=== PATIENT | female | born 1990 | race Caucasian/White ===

== ENCOUNTER 2017-04-23 16:38 | Emergency (ER) | payer OTHER ==
[2017-04-23] MEDS ORDERED: PENICILLIN G BENZATHINE 1.2 MILLION UNIT/2 ML DISP.SYRIN IM ONE (17:12)
[2017-04-23] MEDS ORDERED: DEXAMETHASONE SOD PHOS INJ 10 MG/1 ML VIAL IM ONE (17:12)
--- NOTE | 2017-04-23 17:17 | ER Document Report ---
ED ENT - General Chief Complaint: Sore Throat Stated Complaint: SORE THROAT Time Seen by Provider: 04/23/17 17:01 Mode of Arrival: Ambulatory Information source: Patient TRAVEL OUTSIDE OF THE [place] IN LAST 30 DAYS: No - HPI Patient complains to provider of: Throat problem Notes: The patient is here with complaints of sore throat and fever for the last few days. She denies cough or runny nose. She denies nausea, vomiting, diarrhea. No chest pain or shortness of breath. No abdominal pain. She states that it hurts when she swallows and cold water seems to make things better. She denies any difficulty breathing or swallowing other than pain when she swallows. She denies blurred or loss vision. She denies numbness, TingLING, weakness. She denies neck stiffness. She denies rash. She denies any other complaints at this time. - Related Data Allergies/Adverse Reactions: chocolate Allergy (Uncoded 04/23/17 16:40) throat swelling Past Medical History - Social History Smoking Status: Unknown if Ever Smoked Family History: Reviewed & Not Pertinent Neurological Medical History: Reports: Hx Migraine Renal/ Medical History: Reports: Hx Ovarian Cysts Past Surgical History: Reports: Hx Appendectomy, Hx Gynecologic Surgery - ovarian cyst removal - Immunizations Immunizations up to date: Yes Hx Diphtheria, Pertussis, Tetanus Vaccination: Yes Review of Systems - Review of Systems -: Yes All other systems reviewed and negative Physical Exam - Vital signs Vitals: Temp Pulse Resp BP Pulse Ox 99.4 F 109 H 16 112/69 97 04/23/17 16:39 04/23/17 16:39 04/23/17 16:39 04/23/17 16:39 04/23/17 16:39 - Notes Notes: GENERAL: alert, cooperative, nontoxic, no distress. HEAD: normocephalic, atraumatic EYES: conjunctiva pink without discharge, no external redness or swelling. EARS: no external swelling, no external redness, no mastoid redness, swelling, tenderness. Ear canals are clear without swelling or drainage. TMs pearly stuart , no redness, no bulging, normal landmarks, no perforation. NOSE: atraumatic, no external swelling. clear rhinorrhea noted. MOUTH/THROAT: mucous membranes moist and pink, posterior pharynx with erythema and bilateral tonsillar swelling with tonsils +2. Uvula is midline. No trismus or drooling. No stridor. Voice is normal. No peritonsillar abscess. NECK: soft, supple, full range of motion, no meningismus. Anterior cervical lymphadenopathy bilaterally. CHEST: no distress, lungs clear and equal throughout. No wheezing, rales, rhonchi. CARDIAC: regular rate and rhythm, no murmur, normal capillary refill, normal pulses. No peripheral edema noted. BACK: full range of motion, no CVA tenderness. EXTREMITIES: full range of motion of all extremities. No redness, no swelling. NEURO: alert and oriented A&O3, no focal deficits, full range of motion of all extremities. PYSCH: appropriate mood, affect. Patient is cooperative. SKIN: pink, warm, dry, no rash. Course - Re-evaluation Re-evalutation: 04/23/17 17:15 Patient is nontoxic appearing with stable vitals. The patient is here with complaints of sore throat and fever without cough, runny nose. Throat exam shows erythematous, swollen exudative tonsils with no sign of peritonsillar abscess or significant distress. She has anterior cervical lymphadenopathy. She is afebrile. This point the patient most likely has streptococcal pharyngitis. I offered strep testing versus treatment, the patient states she is fine to be treated. She will be given a dose of Decadron and Bicillin in the emergency department. Discharged home with instructions to take over-the- counter medications as needed for pain. Drink plenty fluids. Follow-up with her doctor if not better in 3-5 days, sooner for worsening pain, difficulty breathing or swallowing, or for any further concerns. The patient's emergency department workup and current diagnosis were explained to the patient and or family. Follow-up instructions were provided. Medications if prescribed were discussed. Instructions for when to return to the emergency department including specific worrisome symptoms were discussed with the patient and/or family. - Vital Signs Vital signs: Temp Pulse Resp BP Pulse Ox 99.4 F 109 H 16 112/69 97 04/23/17 16:39 04/23/17 16:39 04/23/17 16:39 04/23/17 16:39 04/23/17 16:39 Discharge - Discharge Clinical Impression: Strep pharyngitis Condition: Stable Disposition: HOME, SELF-CARE Instructions: Strep Throat ([facility]) Additional Instructions: Drink plenty of fluids. Follow-up with your doctor if not better in 3-5 days, sooner for worsening pain, high fever, persistent vomiting, difficulty breathing or swallowing, or for any further concerns. Forms: Smoking Cessation Education Referrals: [facility] [Provider Group] - Follow up as needed
[2017-04-23 17:47] VITALS: BP 109/71
== END 2017-04-23 17:47 | disposition home or self-care (01) ==
LOC: ER 16:38
DX: J02.0 Streptococcal pharyngitis (principal)
CPT/HCPCS: 99282; 96372; J0561; J1100

== ENCOUNTER 2017-05-07 18:55 | Emergency (ER) | payer OTHER ==
[2017-05-07] MEDS ORDERED: METOCLOPRAMIDE HCL INJ/PF 10 MG/2 ML SDV IM ONE (20:20)
[2017-05-07] MEDS ORDERED: DIPHENHYDRAMINE HCL 50 MG/ML VIAL IM ONE (20:20)
[2017-05-07] MEDS ORDERED: KETOROLAC TROMETHAMINE INJ/PF 30 MG/1 ML SDV IM ONE (20:20)
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
[2017-05-07 21:24] VITALS: BP 130/69
== END 2017-05-07 21:25 | disposition home or self-care (01) ==
LOC: ER 18:55
DX: S09.90XA Unspecified injury of head, initial encounter (principal); R51 Headache; V43.02XA Car driver injured in collision with other type car in nontraffic accident, initial encounter; Y92.481 Parking lot as the place of occurrence of the external cause; Z91.018 Allergy to other foods
CPT/HCPCS: 99283; 96372; J1200; J1885; J2765

== ENCOUNTER 2019-07-29 11:06 | Emergency (ER) | payer OTHER, MEDICAID ==
[2019-07-29 12:11] LABS: ABSOLUTE EOSINOPHILS # (AUTO) 0.4 10^3/uL (0.0-0.6); ABSOLUTE LYMPHOCYTES (AUTO) 3.3 10^3/uL (0.5-4.7); ABSOLUTE MONOCYTES (AUTO) 0.6 10^3/uL (0.1-1.4); ABSOLUTE NEUT (AUTO) 4.1 10^3/uL (1.7-8.2); BASOPHILS % (AUTO) 0.5 % (0-2); EOSINOPHILS % (AUTO) 4.6 % (0-6); HEMOGLOBIN 13.3 g/dL (12.0-15.5); LYMPHOCYTES % (AUTO) 39.4 % (13-45); MEAN CORPUSCULAR HEMOGLOBIN 29.7 pg (27.0-33.4); MEAN CORPUSCULAR HGB CONC 33.3 g/dL (32.0-36.0); MEAN CORPUSCULAR VOLUME 89 fl (80-97); MONOCYTES % (AUTO) 6.8 % (3-13); PLATELET COUNT 259 10^3/uL (150-450); RED BLOOD COUNT 4.48 10^6/uL (3.72-5.28); RED CELL DISTRIBUTION WIDTH 15.6 % (11.5-14.0); SEGMENTED NEUTROPHILS % (AUTO) 48.7 % (42-78); TOTAL CELLS COUNTED % (AUTO) 100 %; WHITE BLOOD COUNT 8.3 10^3/uL (4.0-10.5)
--- NOTE | 2019-07-29 12:28 | RADIOLOGY REPORT (SQ) ---
EXAM DESCRIPTION: CHEST SINGLE VIEW IMAGES COMPLETED DATE/TIME: 07/29/2019 12:17 pm REASON FOR STUDY: shortness of breath COMPARISON: None. EXAM PARAMETERS: NUMBER OF VIEWS: One view. TECHNIQUE: Single frontal radiographic view of the chest acquired. RADIATION DOSE: NA LIMITATIONS: None. FINDINGS: LUNGS AND PLEURA: No opacities, masses or pneumothorax. No pleural effusion. MEDIASTINUM AND HILAR STRUCTURES: No masses. Contour normal. HEART AND VASCULAR STRUCTURES: Heart normal in size. Normal vasculature. BONES: No acute findings. HARDWARE: None in the chest. OTHER: No other significant finding. IMPRESSION: 1. NO ACUTE RADIOGRAPHIC FINDING IN THE CHEST. TECHNICAL DOCUMENTATION: JOB ID: [id number] 2010 [employer]- All Rights Reserved Reading location - IP/workstation name: [email or web address]
[2019-07-29 12:32] LABS: BLOOD UREA NITROGEN 7 mg/dL (7-20); CALCIUM 9.1 mg/dL (8.4-10.2); CARBON DIOXIDE 27 mmol/L (22-30); CHLORIDE 105 mmol/L (98-107); GLUCOSE 92 mg/dL (75-110); POTASSIUM 4.3 mmol/L (3.6-5.0)
[2019-07-29 12:33] LABS: ALBUMIN 4.2 g/dL (3.5-5.0); ALKALINE PHOSPHATASE 66 U/L (38-126); ANION GAP 5 (5-19); ASPARTATE AMINO TRANSFERASE 20 U/L (14-36); BILIRUBIN,TOTAL 0.2 mg/dL (0.2-1.3); TOTAL PROTEIN 7.1 g/dL (6.3-8.2)
[2019-07-29] MEDS ORDERED: KETOROLAC TROMETHAMINE INJ/PF 30 MG/1 ML SDV IV ONE (12:48)
[2019-07-29] MEDS ORDERED: NORMAL SALINE 1000 ML 1,000 ML IV ONE (12:48)
[2019-07-29] MEDS ORDERED: DIPHENHYDRAMINE HCL 50 MG/ML VIAL IV ONE (12:49)
[2019-07-29] MEDS ORDERED: PROCHLORPERAZINE EDISYLATE INJ 10 MG/2 ML VIAL IV ONE (12:49)
--- NOTE | 2019-07-29 13:34 | EKG REPORT ---
SEVERITY:- NORMAL ECG - SINUS RHYTHM : Confirmed by: Jewel Whitaker MD 29-Jul-2019 13:33:19
--- NOTE | 2019-07-29 14:33 | ER Document Report ---
Entered by STEWART SCOTT SCRIBE 07/29/19 1247 Acting as scribe for:IFEOMA AVENDAÑO MD ED General - General Chief Complaint: Shortness Of Breath Stated Complaint: CHILLS,VOMITING,SHORT OF BREATH Time Seen by Provider: 07/29/19 12:29 Mode of Arrival: Ambulatory Information source: Patient Notes: This 29 year old female patient presents to the emergency department today with complaints of a headache across her entire head. Patient has a history of migraines but she reports that this is not like her normal migraine headaches, mentioning that she tried taking her usual topomax which did nothing for this headache. Patient reports she had a few episodes of vomiting five days ago, and then three days ago this headache began along with shortness of breath, general ized body aches, and chills. Patient denies fevers. Patient works at [employer] and she mentions that they have had a few COVID-19 positive patient's come through their facility and multiple staff members have recently been testing positive for COVID-19, patient mentions at least six of her coworkers have come back positive. TRAVEL OUTSIDE OF THE [place] IN LAST 30 DAYS: No - Related Data Allergies/Adverse Reactions: chocolate Allergy (Uncoded 04/23/17 16:40) throat swelling Home Medications: topamax, zofran Past Medical History - General Information source: Patient - Social History Smoking Status: Former Smoker - quit 4 years ago Cigarette use (# per day): No Frequency of alcohol use: None Drug Abuse: None Lives with: Family Family History: Reviewed & Not Pertinent Patient has homicidal ideation: No Neurological Medical History: Reports: Hx Migraine Renal/ Medical History: Reports: Hx Ovarian Cysts Past Surgical History: Reports: Hx Appendectomy, Hx Gynecologic Surgery - ovarian cyst removal - Immunizations Immunizations up to date: Yes Hx Diphtheria, Pertussis, Tetanus Vaccination: Yes Review of Systems - Review of Systems Constitutional: See HPI, Chills. denies: Fever EENT: No symptoms reported Cardiovascular: No symptoms reported Respiratory: See HPI, Short of breath Gastrointestinal: See HPI, Vomiting Genitourinary: No symptoms reported Female Genitourinary: No symptoms reported Musculoskeletal: See HPI, Muscle pain Skin: No symptoms reported Hematologic/Lymphatic: No symptoms reported Neurological/Psychological: See HPI, Headaches -: Yes All other systems reviewed and negative Physical Exam - Vital signs Vitals: Temp 98.8 F 07/29/19 11:08 - Notes Notes: Physical Exam: General: Alert, appears uncomfortable. HEENT: Normocephalic. Atraumatic. PERRL. Extraocular movements intact. Oropharynx clear. Temporal muscles, forehead muscles, scalp muscles are all tend er with palpation. Neck: Supple. Posterior cervical muscles are tender with palpation. Respiratory: No respiratory distress. Clear and equal breath sounds bilaterally. Cardiovascular: Regular rate and rhythm. Abdominal: Normal Inspection. Non-tender. No distension. Normal Bowel Sounds. Back: No gross abnormalities. Extremities: Moves all four extremities. Upper extremities: Normal inspection. Normal ROM. Lower extremities: Normal inspection. No edema. Normal ROM. Neurological: Normal cognition. AAOx4. Normal speech. Psychological: Normal affect. Normal Mood. Skin: Warm. Dry. Normal color. Course - Re-evaluation Re-evalutation: 07/29/19 14:40 Patient reports her nauseousness and headache are better. - Vital Signs Vital signs: Temp Pulse Resp BP Pulse Ox 98.8 F 92 20 103/77 98 07/29/19 11:19 07/29/19 11:19 07/29/19 11:19 07/29/19 11:19 07/29/19 11:19 - Laboratory Result Diagrams: 07/29/19 11:55 07/29/19 11:55 Laboratory results interpreted by me: 07/29/19 11:55 RDW 15.6 H - Diagnostic Test Radiology reviewed: Image reviewed, Reports reviewed - Chest x-ray does not show acute radiographic findings. - EKG Interpretation by Mi EKG shows normal: Sinus rhythm, [place], Intervals, QRS Complexes, ST-T Waves Rate: Normal - 74 Rhythm: NSR Discharge - Discharge Clinical Impression: Viral syndrome, Encounter for laboratory testing for COVID-19 virus Condition: Stable Disposition: HOME, SELF-CARE Additional Instructions: Viral Syndrome: The physician has diagnosed a viral infection. Viruses not only cause "colds," but can cause many different symptoms including generalized aching, fever, headache, cough, diarrhea, nausea, vomiting, and fatigue. The treatment, for the most part, is simply relief of symptoms. This means that antibiotics are usually not given. Rest, fluids, pain medications and, occasionally, medication for the specific symptoms that are most bothersome will be prescribed. Use good handwashing to avoid passing the virus to others. Shared toys should be cleaned with disinfectant. Clean the toilets, sinks, and counter surfaces in bathrooms. Launder clothing in hot water. Contact the physician if you develop any new or unusual symptoms such as severe headache, stiff neck, high fever, chest pain, productive cough, or shortness of breath. You should be rechecked if you don't see marked impr ovement within seven to 10 days. Drink plenty of fluids and get plenty of rest. Take Tylenol and ibuprofen for your headache as needed. Self quarantine at home until you get the results of the COVID testing. Follow-up with your primary care provider if not improving. RETURN TO THE EMERGENCY ROOM IF ANY NEW OR WORSENING SYMPTOMS. I personally performed the services described in the documentation, reviewed and edited the documentation which was dictated to the scribe in my presence, and it accurately records my words and actions.
[2019-07-29 14:55] VITALS: BP 104/61
== END 2019-07-29 14:48 | disposition home or self-care (01) ==
LOC: ER 11:06
DX: B34.9 Viral infection, unspecified (principal); G43.909 Migraine, unspecified, not intractable, without status migrainosus; Z79.899 Other long term (current) drug therapy; R06.02 Shortness of breath; R68.83 Chills (without fever); Z20.828 Contact with and (suspected) exposure to other viral communicable diseases
CPT/HCPCS: 93005; 99285; 36415; 83605; 84703; 85025; 87635; 80053; 71045; 93010; J1200; J1885; J0780; J7030; C9803